=== PATIENT | male | born 1945 | race Caucasian/White ===

== ENCOUNTER 2018-04-25 12:13 | Emergency (ER) | payer MEDICARE, BC ==
[2018-04-25] MEDS ORDERED: NITROGLYCERIN 0.4 MG TAB SL PRN (12:15)
[2018-04-25] MEDS ORDERED: ASPIRIN 81 MG CHEWABLE CTB PO STA (12:15)
[2018-04-25] MEDS ORDERED: NITROGLYCERIN 0.4 MG TAB SL ONE (12:16)
[2018-04-25] MEDS: SODIUM CHLORIDE 0.9% FLUSH 10 ML SOL IV PRN ×2 (12:17→12:34)
[2018-04-25] MEDS ORDERED: ASPIRIN 81 MG CHEWABLE CTB ONE (12:21)
[2018-04-25] MEDS ORDERED: MORPHINE SULFATE 10 MG/ML SOL IV ONE ×2 (12:21→12:30)
[2018-04-25] MEDS ORDERED: MORPHINE SULFATE 10 MG/ML SOL ONE ×2 (12:22→12:31)
[2018-04-25] MEDS ORDERED: ONDANSETRON HCL 4 MG/2 ML SOL IV ONE (12:24)
[2018-04-25] MEDS ORDERED: ONDANSETRON HCL 4 MG/2 ML SOL ONE (12:24)
[2018-04-25 12:29] LABS: BASOPHILS % (AUTO) 1 % (0-3); EOSINOPHILS % (AUTO) 1 % (0-9); HEMATOCRIT 49 % (39-53); HEMOGLOBIN 14.6 gm/dl (13.5-17.7); LYMPHOCYTES % (AUTO) 33.8 % (10-50); MEAN CORPUSCULAR HGB CONC 30.2 gm/dl (32.0-36.0); MEAN CORPUSCULAR VOLUME 93 fL (80-100); MONOCYTES % (AUTO) 9.2 % (0-12)
[2018-04-25 12:35] LABS: INR 1.04 (0.86-1.12)
[2018-04-25 12:43] LABS: ALBUMIN 2.9 gm/dl (3.4-5.0); ALKALINE PHOSPHATASE 146 IU/L (46-116); ALT 24 IU/L (14-63); AST 32 IU/L (15-37); BILIRUBIN,TOTAL 0.3 mg/dl (0.2-1.0); BLOOD UREA NITROGEN 24 mg/dl (7-18); CALCIUM 10.2 mg/dl (8.5-10.1); CARBON DIOXIDE 28.8 mEq/L (21-32); CHLORIDE 102 mMol/L (98-107); CREATINE KINASE 17 U/L (39-308); CREATININE 1.24 mg/dl (0.80-1.30); GLUCOSE 99 mg/dl (74-106); POTASSIUM 4.6 mMol/L (3.5-5.1); SODIUM 138 mMol/L (136-145); TROP I < 0.017 ng/ml (0.000-0.056)
[2018-04-25 15:52] VITALS: TEMP 97.5
[2018-04-25 17:27] VITALS: BP 109/70; PULSE 54; RESP 15; O2SAT 97
== END 2018-04-25 16:41 | disposition short-term general hospital (02) | DRG 313 ==
LOC: ED 12:13
DX: R07.89 Other chest pain (principal); R10.13 Epigastric pain
CPT/HCPCS: 71045; 71275; 74175; 80053; 82550; 84484; 85025; 85378; 85610; 85730; 93005; 96374; 96375; 99284; 99285; J2270; J2405; Q9967; A9270-GY

== ENCOUNTER 2018-05-03 17:23 | Emergency (ER) | payer MEDICARE, BC ==
[2018-05-03] MEDS ORDERED: SODIUM CHLORIDE 0.9% FLUSH 10 ML SOL IV PRN (18:12)
[2018-05-03 18:16] LABS: BASOPHILS % (AUTO) 1 % (0-3); EOSINOPHILS % (AUTO) 2 % (0-9); HEMATOCRIT 41 % (39-53); HEMOGLOBIN 13.1 gm/dl (13.5-17.7); LYMPHOCYTES % (AUTO) 12.9 % (10-50); MEAN CORPUSCULAR HEMOGLOBIN 28.6 pg (27.0-32.0); MEAN CORPUSCULAR HGB CONC 31.8 gm/dl (32.0-36.0); MEAN CORPUSCULAR VOLUME 90 fL (80-100); MONOCYTES % (AUTO) 7.5 % (0-12); NEUTROPHILS % (AUTO) 77.4 % (37-80)
[2018-05-03 18:29] LABS: ALBUMIN 2.8 gm/dl (3.4-5.0); BILIRUBIN,TOTAL 0.2 mg/dl (0.2-1.0); CALCIUM 9.6 mg/dl (8.5-10.1); CARBON DIOXIDE 28.4 mEq/L (21-32); CREATININE 1.03 mg/dl (0.80-1.30); POTASSIUM 4.7 mMol/L (3.5-5.1); TOTAL PROTEIN 6.7 gm/dl (6.4-8.2)
[2018-05-03] MEDS ORDERED: MORPHINE SULFATE 10 MG/ML SOL IV ONE (18:34)
[2018-05-03] MEDS ORDERED: MORPHINE SULFATE 10 MG/ML SOL ONE (18:36)
[2018-05-03 19:06] VITALS: TEMP 99.2
[2018-05-03 19:20] LABS: APPEARANCE,URINE Clear; BILIRUBIN,URINE NEGATIVE (NEGATIVE); COLOR,URINE Yellow; GLUCOSE, URINE (UA) NEGATIVE (NEGATIVE); KETONES,URINE NEGATIVE (NEGATIVE); LEUKOCYTE ESTERASE ,URINE NEGATIVE (NEGATIVE); NITRATE,URINE NEGATIVE (NEGATIVE); OCCULT BLOOD,URINE NEGATIVE (NEG-TRACE); PH,URINE 7.5; UROBILINOGEN,URINE 0.2 (0.2-1.0 EU)
[2018-05-03 19:35] LABS: BACTERIA 1+ (< 1+); CRYSTALS NEGATIVE (0-3 AVE/HPF); EPITHELIAL CELLS 0-1 (SQUAMOUS); RBC,URINE 0-1 (0-3AV/HPF); WBC,URINE 0-2 (0-5AV/HPF)
[2018-05-03 21:03] VITALS: BP 154/103; PULSE 112; RESP 16; O2SAT 92
== END 2018-05-03 20:41 | disposition home or self-care (01) | DRG 440 ==
LOC: ED 17:23
DX: K85.10 Biliary acute pancreatitis without necrosis or infection (principal)
CPT/HCPCS: 74177; 80053; 81001; 85025; 96374; 99284; J2270; Q9967

== ENCOUNTER 2018-05-24 04:51 | Emergency (ER) | payer MEDICARE, BC ==
[2018-05-24 05:42] LABS: BASOPHILS % (AUTO) 1 % (0-3); EOSINOPHILS % (AUTO) 3 % (0-9); HEMATOCRIT 45 % (39-53); HEMOGLOBIN 14.6 gm/dl (13.5-17.7); LYMPHOCYTES % (AUTO) 16.6 % (10-50); MEAN CORPUSCULAR HEMOGLOBIN 29.2 pg (27.0-32.0); MEAN CORPUSCULAR HGB CONC 32.5 gm/dl (32.0-36.0); MEAN CORPUSCULAR VOLUME 90 fL (80-100); MONOCYTES % (AUTO) 8.3 % (0-12)
[2018-05-24 06:03] LABS: INR 1.01 (0.86-1.12)
[2018-05-24] MEDS: SODIUM CHLORIDE 0.9% 1000ML 1,000 ML IV SCH ×2 (06:15→07:00)
[2018-05-24 06:23] LABS: ALBUMIN 3.2 gm/dl (3.4-5.0); BILIRUBIN,TOTAL 0.3 mg/dl (0.2-1.0); CALCIUM 9.6 mg/dl (8.5-10.1); CARBON DIOXIDE 29.2 mEq/L (21-32); CREATININE 1.31 mg/dl (0.80-1.30); POTASSIUM 4.2 mMol/L (3.5-5.1)
[2018-05-24] MEDS ORDERED: ONDANSETRON HCL 4 MG/2 ML SOL IV ONE (06:23)
[2018-05-24] MEDS ORDERED: ONDANSETRON HCL 4 MG/2 ML SOL ONE (06:29)
[2018-05-24] MEDS ORDERED: MORPHINE SULFATE 10 MG/ML SOL ONE ×2 (06:29→07:05)
[2018-05-24] MEDS: MORPHINE SULFATE 10 MG/ML SOL IV PRN ×2 (06:32→07:10)
[2018-05-24 06:41] LABS: APPEARANCE,URINE Clear; BILIRUBIN,URINE 1+ (NEGATIVE); COLOR,URINE Dark yellow; GLUCOSE, URINE (UA) NEGATIVE (NEGATIVE); KETONES,URINE TRACE (NEGATIVE); LEUKOCYTE ESTERASE ,URINE NEGATIVE (NEGATIVE); NITRATE,URINE NEGATIVE (NEGATIVE); OCCULT BLOOD,URINE NEGATIVE (NEG-TRACE); UROBILINOGEN,URINE 0.2 (0.2-1.0 EU)
[2018-05-24] MEDS: SODIUM CHLORIDE 0.9% FLUSH 10 ML SOL IV PRN ×3 (06:45→12:55)
[2018-05-24 07:26] LABS: ICTOTEST,URINE NEGATIVE (NEGATIVE); RBC,URINE 0-2 (0-3AV/HPF)
[2018-05-24 07:27] LABS: BACTERIA 1+ (< 1+); CRYSTALS NEGATIVE (0-3 AVE/HPF)
[2018-05-24] MEDS ORDERED: HYDROMORPHONE 1 MG/ML SYRINGE IV PRN ×2 (07:56→12:52)
[2018-05-24] MEDS ORDERED: HYDROMORPHONE 1 MG/ML SYRINGE ONE ×2 (07:57→12:54)
[2018-05-24] MEDS ORDERED: THIAMINE 100 MG/ML 100 MG/ML SOL ONE (09:20)
[2018-05-24 09:53] VITALS: TEMP 96
[2018-05-24 13:33] VITALS: RESP 18
[2018-05-24 13:37] VITALS: BP 128/80; PULSE 18; O2SAT 93
== END 2018-05-24 14:21 | disposition short-term general hospital (02) | DRG 392 ==
LOC: ED 04:51
DX: R10.11 Right upper quadrant pain (principal)
CPT/HCPCS: 36415; 74019; 74177; 80053; 81001; 82150; 85025; 85610; 96365; 96366; 96374; 96375; 99284; 99285; J2270; J2405; Q9967; J1170; J3411